=== PATIENT | female | born 1955 | race Two or more races ===

== ENCOUNTER 2021-07-18 08:41 | Emergency (ER) | payer OTHER ==
[~2021-07-18] VITALS: Ht 170.2 cm; Wt 86.2 kg
[2021-07-18] MEDS ORDERED: DIOVAN320 MG PO (08:59)
[2021-07-18] MEDS ORDERED: TOPROL XL50 M1 PO (09:00)
[2021-07-18] MEDS ORDERED: CIPRO500 MG/5 M PO (09:00)
[2021-07-18] MEDS ORDERED: NEURONTIN300 MG (09:00)
[2021-07-18] MEDS ORDERED: CRESTOR10 MG PO (09:01)
[2021-07-18] MEDS ORDERED: XARELTO20 MG (09:01)
[2021-07-18] MEDS ORDERED: INTESTINEX680 M1 PO (16:25)
[2021-07-18] MEDS ORDERED: LEVSIN/SL0.125 MG PO (16:25)
[2021-07-18] MEDS ORDERED: FLAGYL500MG PO (16:25)
[2021-07-18] MEDS ORDERED: CIPRO500 MG PO (16:25)
[2021-07-18] MEDS ORDERED: STONEX PO (16:25)
== END 2021-07-18 16:39 ==
LOC: ER 08:41
DX: N20.9 Urinary calculus, unspecified (principal); Z03.818 Encounter for observation for suspected exposure to other biological agents ruled out

== ENCOUNTER 2021-12-29 19:37 | Emergency (ER) | payer OTHER ==
[~2021-12-29] VITALS: Ht 170.2 cm; Wt 77.1 kg
[~2021-12-29 19:37] MED LIST: CIPRO500 MG PO; CIPRO500 MG/5 M PO; CRESTOR10 MG PO; DIOVAN320 MG PO; FLAGYL500MG PO; INTESTINEX680 M1 PO; LEVSIN/SL0.125 MG PO; NEURONTIN300 MG; STONEX PO; TOPROL XL50 M1 PO; XARELTO20 MG
== END 2021-12-30 01:47 | disposition home or self-care (01) ==
LOC: ER 19:37
DX: R10.84 Generalized abdominal pain (principal); N20.0 Calculus of kidney

== ENCOUNTER 2021-12-31 18:00 | Inpatient (IN) | payer OTHER ==
[~2021-12-31] VITALS: Ht 170.2 cm; Wt 77.1 kg
[2022-01-19] MEDS ORDERED: HYOSCYAMINE0.125 M1 SL (13:17)
[2022-01-19] MEDS ORDERED: CHOLESTYRAMINE P4 GM PO (13:17)
[2022-01-19] MEDS ORDERED: LOPERAMIDE2 MG PO (13:18)
[2022-01-19] MEDS ORDERED: INTESTINEX680 M1 PO (13:18)
== END 2022-01-19 18:00 | disposition home or self-care (01) | DRG 392 ==
LOC: ER 18:00 → SURG 19:35
PROVIDERS: ADMIT Colon & Rectal Surgery; ATTEND Colon & Rectal Surgery
PROC: 02HV33Z Insertion of Infusion Device into Superior Vena Cava, Percutaneous Approach (ICD-10-PCS; principal; 2022-01-01)
PROC: B54DZZZ Ultrasonography of Bilateral Lower Extremity Veins (ICD-10-PCS; 2022-01-02)
PROC: B54BZZZ Ultrasonography of Right Lower Extremity Veins (ICD-10-PCS; 2022-01-03)
DX: K57.20 Diverticulitis of large intestine with perforation and abscess without bleeding (principal); R10.32 Left lower quadrant pain; D64.9 Anemia, unspecified; N28.1 Cyst of kidney, acquired; N20.0 Calculus of kidney; F43.20 Adjustment disorder, unspecified; I10 Essential (primary) hypertension; E78.49 Other hyperlipidemia; Z86.718 Personal history of other venous thrombosis and embolism; Z79.01 Long term (current) use of anticoagulants